=== PATIENT | male | born 1970 | race Caucasian/White ===

== ENCOUNTER 2024-04-21 12:41 | Outpatient (CLI) | payer OTHER | END 2024-04-21 12:42 | disposition home or self-care (01) | LOC: CSHCT 12:41 | PROVIDERS: ATTEND Internal Medicine | DX: R10.9 Unspecified abdominal pain (principal); Z87.442 Personal history of urinary calculi; N20.0 Calculus of kidney; K76.0 Fatty (change of) liver, not elsewhere classified | CPT/HCPCS: 74176 ==

== ENCOUNTER 2024-11-10 13:39 | Outpatient (CLI) | payer OTHER | END 2024-11-10 13:40 | disposition home or self-care (01) | LOC: CSHCT 13:39 | PROVIDERS: ATTEND Internal Medicine | DX: N20.0 Calculus of kidney (principal); R10.9 Unspecified abdominal pain; K76.0 Fatty (change of) liver, not elsewhere classified | CPT/HCPCS: 74176 ==